=== PATIENT | male | born 1985 | race Caucasian/White ===

== ENCOUNTER 2021-07-14 10:25 | Emergency (ER) | payer SELFPAY ==
[~2021-07-14] VITALS: Ht 167.6 cm; Wt 72.6 kg
--- NOTE | 2021-07-14 10:25 | NUR ---
PT AMBULATED TO [facility] [place] ACCOMPANIED BY [place] [employer].
[2021-07-14 10:27] VITALS: BP 151/64
--- NOTE | 2021-07-14 11:42 | NUR ---
PT PROVIDED WITH WATER
--- NOTE | 2021-07-14 12:04 | NUR ---
[facility] WITH PT FURTHER EVALUATION.
[2021-07-14] MEDS: IBUPROFEN 600 MG TAB PO ONE (12:11)
[2021-07-14] MEDS ORDERED: IBUP-2213 PO (13:01)
[2021-07-14 13:12] VITALS: BP 147/64
--- NOTE | 2021-07-14 13:13 | NUR ---
Patient discharged with v/s stable. Written and verbal after care instructions given and explained. Patient alert, oriented and verbalized understanding of instructions. Ambulatory with in custody. All questions addressed prior to discharge. ID band removed. Patient advised to follow up with PMD. Rx of IBU given. Patient educated on indication of medication including possible reaction and side effects. Opportunity to ask questions provided and answered.
== END 2021-07-14 13:12 ==
LOC: MED 10:25
DX: S46.811A Strain of other muscles, fascia and tendons at shoulder and upper arm level, right arm, initial encounter (principal); M79.10 Myalgia, unspecified site; R03.0 Elevated blood-pressure reading, without diagnosis of hypertension; R51.9 Headache, unspecified; M54.9 Dorsalgia, unspecified; Z02.89 Encounter for other administrative examinations; Z79.899 Other long term (current) drug therapy; V89.2XXA Person injured in unspecified motor-vehicle accident, traffic, initial encounter; Y93.89 Activity, other specified; Y92.89 Other specified places as the place of occurrence of the external cause; Y99.8 Other external cause status
CPT/HCPCS: 73030; 99283